=== PATIENT | female | born 1950 | race Caucasian/White ===

== ENCOUNTER → 2023-11-27 10:38 | Outpatient (REF) | payer MEDICARE, SELFPAY | LOC: HWWDC 10:38 | PROVIDERS: ATTENDING PHYSICIAN Internal Medicine | DX: Z12.31 Encounter for screening mammogram for malignant neoplasm of breast (principal) | CPT/HCPCS: 77063; 77067 ==

== ENCOUNTER → 2024-01-11 06:18 | Day surgery (SDC) | payer MEDICARE, SELFPAY ==
[2024-01-11 07:50] LABS: Glucose - Point of Care 203 mg/dl (70-99)
== END ==
LOC: GI 06:18
PROVIDERS: ATTENDING PHYSICIAN Internal Medicine Gastroenterology
DX: Z12.11 Encounter for screening for malignant neoplasm of colon (principal); D12.0 Benign neoplasm of cecum; K57.30 Diverticulosis of large intestine without perforation or abscess without bleeding; K64.8 Other hemorrhoids; R19.7 Diarrhea, unspecified
CPT/HCPCS: 45380; 88305; 82962

== ENCOUNTER → 2024-11-03 09:59 | Outpatient (REF) | payer MEDICARE, SELFPAY | LOC: HWRAD 09:59 | PROVIDERS: ATTENDING PHYSICIAN Internal Medicine | DX: R60.0 Localized edema (principal) | CPT/HCPCS: 93971 ==

== ENCOUNTER → 2024-12-25 10:15 | Outpatient (REF) | payer MEDICARE, SELFPAY | LOC: HWWDC 10:15 | PROVIDERS: ATTENDING PHYSICIAN Internal Medicine | DX: Z12.31 Encounter for screening mammogram for malignant neoplasm of breast (principal) | CPT/HCPCS: 77063; 77067 ==

== ENCOUNTER → 2025-07-19 09:29 | Outpatient (REF) | payer MEDICARE, SELFPAY | LOC: MRI 3T 09:29 | PROVIDERS: ATTENDING PHYSICIAN Nurse Practitioner; FAMILY PHYSICIAN Internal Medicine | DX: K86.2 Cyst of pancreas (principal) | CPT/HCPCS: 74183; A9575 ==